=== PATIENT | male | born 1930 | race African-American/Black ===

== ENCOUNTER 2016-10-13 07:56 | Outpatient (CLI) | payer MEDICARE, MEDICAID ==
[2016-10-13 08:03] LABS: #Eosinphils 0.2 thou/uL (0.0-0.7); #Lymphocytes 2.1 thou/uL (1.20-3.40); #Monocytes 0.3 thou/uL (0.11-0.59); #Neutrophils 1.8 thou/uL (1.40-6.50); %Basophils 0.7 % (0.0-1.0); %Eosinophils 3.4 % (0.0-10.0); %Lymphocytes 47.9 % (21.0-51.0); %Monocytes 7.2 % (0.0-10.0); %Neutrophils 40.7 % (42.0-75.0); Hemoglobin 15.4 g/dL (14.0-18.0); Mean Corpuscular HGB CONC 31.9 g/dL (32.0-36.0); Mean Corpuscular Hemoglobin 33.2 pg (27.0-31.0); Mean Platelet Volume 8.7 fL (7.4-10.4); Platelet Count 139 thou/uL (130-400); RBC Distribution Width 12.9 % (11.5-14.5); Red Blood Cell (RBC) Count 4.62 mill/uL (4.70-6.10); White Blood Cell (WBC) Count 4.4 thou/uL (4.8-10.8)
[2016-10-13 08:42] LABS: ALT (SGPT) 11 U/L (0-55); AST (SGOT) 18 U/L (5-34); Albumin 4.3 g/dL (3.4-4.8); Alkaline Phosphatase 114 U/L (40-150); Anion Gap 15 mmol/L (10-20); BUN (Urea Nitrogen) 9 mg/dL (8.4-25.7); Bilirubin, Total 0.9 mg/dL (0.2-1.2); Calc. Creatinine Clearance 0 mL/min (70-130); Calcium 10.7 mg/dL (7.8-10.44); Carbon Dioxide 20 mmol/L (23-31); Chloride 111 mmol/L (98-107); Estimated GFR-MDRD Greater than 90; Globulin 2.5 g/dL (2.4-3.5); Glucose 91 mg/dL (83-110); Potassium 4.2 mmol/L (3.5-5.1); Protein, Total 6.8 g/dL (5.8-8.1); Sodium 142 mmol/L (136-145)
== END 2016-10-13 07:57 | disposition home or self-care (01) ==
LOC: NAV NNR 07:56
PROVIDERS: ATTEND Internal Medicine
DX: I67.81 Acute cerebrovascular insufficiency (principal); I10 Essential (primary) hypertension
CPT/HCPCS: 80053; 84443; 85025

== ENCOUNTER 2016-11-24 07:37 | Outpatient (CLI) | payer MEDICARE, MEDICAID ==
[2016-11-24 09:42] LABS: #Eosinphils 0.2 thou/uL (0.0-0.7); #Monocytes 0.6 thou/uL (0.11-0.59); #Neutrophils 4.1 thou/uL (1.40-6.50); %Basophils 0.6 % (0.0-1.0); %Eosinophils 2.7 % (0.0-10.0); %Lymphocytes 29.2 % (21.0-51.0); %Neutrophils 59.4 % (42.0-75.0); Hemoglobin 12.9 g/dL (14.0-18.0); Mean Corpuscular HGB CONC 32.1 g/dL (32.0-36.0); Mean Corpuscular Hemoglobin 31.6 pg (27.0-31.0); Mean Corpuscular Volume 98.4 fl (80.0-94.0); Mean Platelet Volume 8.4 fL (7.4-10.4); Platelet Count 108 thou/uL (130-400); RBC Distribution Width 12.5 % (11.5-14.5); Red Blood Cell (RBC) Count 4.07 mill/uL (4.70-6.10); White Blood Cell (WBC) Count 6.9 thou/uL (4.8-10.8)
[2016-11-24 09:57] LABS: PLT Morphology Comment Appears Decreased
== END 2016-11-24 07:38 | disposition home or self-care (01) ==
LOC: NAV LABSP 07:37
PROVIDERS: ATTEND Internal Medicine
DX: J40 Bronchitis, not specified as acute or chronic (principal); I10 Essential (primary) hypertension
CPT/HCPCS: 36415; 85025

== ENCOUNTER 2016-12-23 09:06 | Outpatient (CLI) | payer MEDICARE, MEDICAID ==
[2016-12-23 11:54] LABS: ALT (SGPT) 10 U/L (8-55); AST (SGOT) 12 U/L (5-34); Albumin 4.2 g/dL (3.4-4.8); Alkaline Phosphatase 99 U/L (40-150); Anion Gap 14 mmol/L (10-20); BUN (Urea Nitrogen) 10 mg/dL (8.4-25.7); Calc. Creatinine Clearance 0 mL/min (70-130); Calcium 11.6 mg/dL (7.8-10.44); Carbon Dioxide 21 mmol/L (23-31); Chloride 111 mmol/L (98-107); Cholesterol 141 mg/dl (< 200 Desired); Estimated GFR-MDRD 86; Globulin 2.7 g/dL (2.4-3.5); Glucose 89 mg/dL (83-110); HDL Cholesterol 47 mg/dL (>60 Neg Risk); LDL Cholesterol, Calculated 82 mg/dL; Protein, Total 6.9 g/dL (5.8-8.1); Sodium 142 mmol/L (136-145); Triglycerides 60 mg/dL (Less than 150)
[2016-12-23 17:29] LABS: Valproic Acid (Depakene) Less than 12.5 ug/mL (50.0-100.0)
== END 2016-12-23 09:07 | disposition home or self-care (01) ==
LOC: NAV LABSP 09:06
PROVIDERS: ATTEND Internal Medicine
DX: F31.9 Bipolar disorder, unspecified (principal); I10 Essential (primary) hypertension; I67.89 Other cerebrovascular disease
CPT/HCPCS: 36415; 80053; 80061; 80164

== ENCOUNTER 2017-01-17 09:05 | Outpatient (CLI) | payer MEDICARE, OTHER ==
[2017-01-17 10:32] LABS: #Eosinphils 0.1 thou/uL (0.0-0.7); #Lymphocytes 1.9 thou/uL (1.20-3.40); #Monocytes 0.3 thou/uL (0.11-0.59); #Neutrophils 2.1 thou/uL (1.40-6.50); %Basophils 0.5 % (0.0-1.0); %Eosinophils 3.3 % (0.0-10.0); %Lymphocytes 42.8 % (21.0-51.0); %Neutrophils 46.4 % (42.0-75.0); Hemoglobin 14.1 g/dL (14.0-18.0); Mean Corpuscular HGB CONC 32.1 g/dL (32.0-36.0); Mean Corpuscular Hemoglobin 31.5 pg (27.0-31.0); Mean Corpuscular Volume 98.1 fl (80.0-94.0); Mean Platelet Volume 8.4 fL (7.4-10.4); Platelet Count 115 thou/uL (130-400); RBC Distribution Width 13.1 % (11.5-14.5); Red Blood Cell (RBC) Count 4.48 mill/uL (4.70-6.10); White Blood Cell (WBC) Count 4.4 thou/uL (4.8-10.8)
[2017-01-17 10:42] LABS: ALT (SGPT) 8 U/L (8-55); AST (SGOT) 12 U/L (5-34); Albumin 3.9 g/dL (3.4-4.8); Alkaline Phosphatase 102 U/L (40-150); Anion Gap 14 mmol/L (10-20); BUN (Urea Nitrogen) 10 mg/dL (8.4-25.7); Bilirubin, Total 0.9 mg/dL (0.2-1.2); Calc. Creatinine Clearance 0 mL/min (70-130); Calcium 10.7 mg/dL (7.8-10.44); Carbon Dioxide 20 mmol/L (23-31); Chloride 112 mmol/L (98-107); Estimated GFR-MDRD Greater than 90; Glucose 88 mg/dL (83-110); Protein, Total 5.9 g/dL (5.8-8.1); Sodium 142 mmol/L (136-145)
== END 2017-01-17 09:06 | disposition home or self-care (01) ==
LOC: NAV LABSP 09:05
PROVIDERS: ATTEND Internal Medicine
DX: I10 Essential (primary) hypertension (principal); I67.81 Acute cerebrovascular insufficiency
CPT/HCPCS: 36415; 80053; 85025

== ENCOUNTER 2017-02-16 07:15 | Outpatient (CLI) | payer MEDICARE, OTHER ==
[2017-02-16 08:53] LABS: ALT (SGPT) 7 U/L (8-55); AST (SGOT) 12 U/L (5-34); Albumin 3.7 g/dL (3.4-4.8); Alkaline Phosphatase 97 U/L (40-150); Anion Gap 13 mmol/L (10-20); BUN (Urea Nitrogen) 12 mg/dL (8.4-25.7); Bilirubin, Total 1.2 mg/dL (0.2-1.2); Calc. Creatinine Clearance 0 mL/min (70-130); Calcium 10.6 mg/dL (7.8-10.44); Carbon Dioxide 22 mmol/L (23-31); Chloride 114 mmol/L (98-107); Estimated GFR-MDRD 85; Globulin 1.9 g/dL (2.4-3.5); Glucose 102 mg/dL (83-110); Potassium 3.7 mmol/L (3.5-5.1); Protein, Total 5.6 g/dL (5.8-8.1); Sodium 145 mmol/L (136-145)
[2017-02-16 13:43] LABS: #Eosinphils 0.1 thou/uL (0.0-0.7); #Lymphocytes 0.6 thou/uL (1.20-3.40); #Monocytes 0.3 thou/uL (0.11-0.59); #Neutrophils 5.4 thou/uL (1.40-6.50); %Basophils 0.3 % (0.0-1.0); %Eosinophils 1.7 % (0.0-10.0); %Lymphocytes 9.6 % (21.0-51.0); %Monocytes 5.1 % (0.0-10.0); %Neutrophils 83.2 % (42.0-75.0); Hemoglobin 13.2 g/dL (14.0-18.0); Mean Corpuscular HGB CONC 32.2 g/dL (32.0-36.0); Mean Corpuscular Hemoglobin 31.5 pg (27.0-31.0); Mean Platelet Volume 9.9 fL (7.4-10.4); Platelet Count 92 thou/uL (130-400); RBC Distribution Width 13.1 % (11.5-14.5); Red Blood Cell (RBC) Count 4.18 mill/uL (4.70-6.10); White Blood Cell (WBC) Count 6.5 thou/uL (4.8-10.8)
[2017-02-16 18:45] LABS: Valproic Acid (Depakene) 13.3 ug/mL (50.0-100.0)
== END 2017-02-16 07:16 | disposition home or self-care (01) ==
LOC: NAV LABSP 07:15
PROVIDERS: ATTEND Internal Medicine
DX: R11.2 Nausea with vomiting, unspecified (principal); I10 Essential (primary) hypertension; I67.89 Other cerebrovascular disease; F02.81 Dementia in other diseases classified elsewhere, unspecified severity, with behavioral disturbance
CPT/HCPCS: 36415; 80053; 80164; 85025

== ENCOUNTER 2017-02-18 13:30 | Outpatient (CLI) | payer MEDICARE, MEDICAID ==
[2017-02-18 19:23] LABS: Bilirubin Negative (Negative); Blood, Urine Moderate (Negative); Clarity Clear (Clear); Glucose, Urine (Dipstick) Negative (Negative); Leukocyte Negative (Negative); Nitrite Negative (Negative); Protein, Urine (Dipstick) 30 mg/dL (Neg-Trace); Specific Gravity, Urine 1.015 (1.005-1.030); pH, Urine 8.5 (5.0-9.0)
[2017-02-18 19:56] LABS: Bacteria/HPF None Seen HPF (None Seen); Crystals/HPF 2+ TRIPLE PHOS HPF (Negative); RBC/HPF 0-3 HPF (0-3); Squamous Epithelial 0-3 HPF (0-3); WBC/HPF 0-3 HPF (0-3)
== END 2017-02-18 13:31 | disposition home or self-care (01) ==
LOC: NAV LABSP 13:30
PROVIDERS: ATTEND Internal Medicine
DX: I67.89 Other cerebrovascular disease (principal); F02.81 Dementia in other diseases classified elsewhere, unspecified severity, with behavioral disturbance; I10 Essential (primary) hypertension; R11.2 Nausea with vomiting, unspecified
CPT/HCPCS: 81001; 87086

== ENCOUNTER 2017-04-22 11:03 | Outpatient (CLI) | payer MEDICARE, MEDICAID ==
[2017-04-22 20:06] LABS: Bilirubin Negative (Negative); Blood, Urine Negative (Negative); Glucose, Urine (Dipstick) Negative (Negative); Leukocyte Negative (Negative); Nitrite Negative (Negative); Protein, Urine (Dipstick) Negative (Neg-Trace)
[2017-04-22 20:08] LABS: Clarity SL HAZY (Clear)
== END 2017-04-22 11:04 | disposition home or self-care (01) ==
LOC: NAV LABSP 11:03
PROVIDERS: ATTEND Internal Medicine
DX: I67.89 Other cerebrovascular disease (principal); F32.89 Other specified depressive episodes
CPT/HCPCS: 81003; 87086

== ENCOUNTER 2017-12-06 16:05 | Emergency (ER) | payer MEDICARE, OTHER ==
[2017-12-06] MEDS ORDERED: Ondansetron HCl/PF 4 MG/2 ML Vial ONE (16:31)
[2017-12-06] MEDS ORDERED: Sodium Chloride 0.9% 1,000 ML ONE ×3 (16:31→18:14)
[2017-12-06 17:03] LABS: #Eosinphils 0.1 thou/uL (0.0-0.7); #Lymphocytes 2.2 thou/uL (1.20-3.40); #Monocytes 0.1 thou/uL (0.11-0.59); #Neutrophils 6.4 thou/uL (1.40-6.50); %Basophils 0.4 % (0.0-1.0); %Eosinophils 0.6 % (0.0-10.0); %Lymphocytes 24.8 % (21.0-51.0); %Monocytes 1.4 % (0.0-10.0); %Neutrophils 72.8 % (42.0-75.0); Hemoglobin 14.2 g/dL (14.0-18.0); Mean Corpuscular HGB CONC 30.5 g/dL (32.0-36.0); Mean Corpuscular Hemoglobin 30.9 pg (27.0-31.0); Mean Platelet Volume 10.3 fL (7.4-10.4); Platelet Count 139 thou/uL (130-400); Red Blood Cell (RBC) Count 4.59 mill/uL (4.70-6.10); White Blood Cell (WBC) Count 8.8 thou/uL (4.8-10.8)
--- NOTE | 2017-12-06 17:11 | RAD ---
CHEST ONE VIEW: 12/06/17 HISTORY: Altered mental status. COMPARISON: Chest radiograph 03/26/14. FINDINGS: The lungs are hypoinflated. There is mild prominence of the vascular pedicle likely sequela of hypoin flation. Mild pulmonary venous congestion. No pneumothorax. IMPRESSION: Lung hypoinflation and pulmonary venous congestion. POS: [facility]
[2017-12-06] MEDS ORDERED: Sodium Chloride 0.9% 250 ML 250 ML ONE (17:18)
[2017-12-06 17:31] LABS: ALT (SGPT) 18 U/L (8-55); AST (SGOT) 22 U/L (5-34); Albumin 4.5 g/dL (3.4-4.8); Alkaline Phosphatase 179 U/L (40-150); Anion Gap 21 mmol/L (10-20); BUN (Urea Nitrogen) 21 mg/dL (8.4-25.7); Bilirubin, Total 1.1 mg/dL (0.2-1.2); Calc. Creatinine Clearance 0 mL/min (70-130); Carbon Dioxide 19 mmol/L (23-31); Chloride 110 mmol/L (98-107); Estimated GFR-MDRD 42; Globulin 2.6 g/dL (2.4-3.5); Glucose 159 mg/dL (83-110); Potassium 3.6 mmol/L (3.5-5.1); Protein, Total 7.1 g/dL (5.8-8.1); Sodium 146 mmol/L (136-145)
[2017-12-06] MEDS ORDERED: Norepinephrine 8 MG/0.9% NS 250 ML ONE (18:04)
[2017-12-06 18:27] LABS: CKMB 1.5 ng/mL (0-6.6); Troponin I 0.027 ng/mL (< 0.028)
--- NOTE | 2017-12-06 18:46 | RAD ---
CHEST ONE VIEW 12/06/17 HISTORY: Central line placement. COMPARISON: Chest radiograph same day. FINDINGS: A central venous catheter is in place with tip projecting over the superior SVC. Mild rightward buckl ing of the trachea. IMPRESSION: 1. Central venous catheter tip projecting over the expected location of the superior SVC. No pne umothorax. 2. Mild rightward buckling of the trachea. May be sequela of mediastinal mass versus transverse aortic ectasia. POS: [facility]
--- NOTE | 2017-12-07 08:10 | RAD ---
SINGLE VIEW OF THE CHEST: COMPARISON: 12/06/17. HISTORY: Chest pain and shortness of breath. FINDINGS: A single view of the chest shows a normal-size cardiomediastinal silhouette. There is no evidence of consolidation, mass, or pleural effusion. Degenerative changes are seen in the spine. IMPRESSION: No evidence of acute cardiopulmonary disease. POS: [facility]
== END 2017-12-06 19:43 | disposition short-term general hospital (02) ==
LOC: NAV ERS 16:05
DX: I95.9 Hypotension, unspecified (principal); N17.9 Acute kidney failure, unspecified; R41.82 Altered mental status, unspecified; F03.90 Unspecified dementia, unspecified severity, without behavioral disturbance, psychotic disturbance, mood disturbance, and anxiety; R74.0 Nonspecific elevation of levels of transaminase and lactic acid dehydrogenase [LDH]; E78.5 Hyperlipidemia, unspecified; F32.9 Major depressive disorder, single episode, unspecified; K21.9 Gastro-esophageal reflux disease without esophagitis; I10 Essential (primary) hypertension; Z86.73 Personal history of transient ischemic attack (TIA), and cerebral infarction without residual deficits; Z87.891 Personal history of nicotine dependence; Z85.46 Personal history of malignant neoplasm of prostate
CPT/HCPCS: 36556; 51702; 71045; 80053; 82553; 83605; 83880; 84484; 85025; 87040; 87149; 93005; 94760; 96361; 96365; 96366; 96375; J2405; J3370; J7050